=== PATIENT | male | born 1970 | race Hispanic/Latino ===

== ENCOUNTER 2020-03-18 08:57 | Emergency (ER) | payer OTHER ==
--- NOTE | 2020-03-18 09:15 | EDPHYS ---
Physician Documentation [facility] Name: Thomas Garrett Age: 49 yrs Sex: Male : 1970 Arrival Date: 03/18/2020 Time: 09:00 Bed 6 Private MD: ED Physician Jace Mcgrath HPI: 03/18 09:06 This 49 yrs old Male presents to ER via Unassigned with complaints of Facial ps1 Droop, Numbness Of Mouth. 09:06 Patient has symptoms of [address] palsy. Left side of face. Woke up this morning with ps1 symptoms of ptosis, facial droop, and numbness to tongue. No motor deficits and went to the gym this morning without weakness. No other complaints. . Historical: - Allergies: 09:12 No Known Allergies; bp - Home Meds: 09:12 None [Active]; bp - PMHx: 09:12 None; bp - Immunization history:: Adult Immunizations up to date. - Social history:: Smoking status: Patient denies any tobacco usage or history of. ROS: 09:06 Constitutional: Negative for fever, chills, and weight loss. ps1 09:06 Cardiovascular: Negative for chest pain, palpitations, and edema, Respiratory: Negative for shortness of breath, cough, wheezing, and pleuritic chest pain, Abdomen/GI: Negative for abdominal pain, nausea, vomiting, diarrhea, and constipation, MS/Extremity: Negative for injury and deformity. 09:06 Eyes: Positive for ptosis. 09:06 Neuro: Positive for weakness, of the left cheek, left eye and left jaw. Exam: 09:06 Constitutional: This is a well developed, well nourished patient who is awake, alert, ps1 and in no acute distress. Head/Face: Normocephalic, atraumatic. ENT: Nares patent. No nasal discharge, no septal abnormalities noted. Tympanic membranes are normal and external auditory canals are clear. Oropharynx with no redness, swelling, or masses, exudates, or evidence of obstruction, uvula midline. Mucous membranes moist. Neck: Trachea midline, no thyromegaly or masses palpated, and no cervical lymphadenopathy. Supple, full range of motion without nuchal rigidity, or vertebral point tenderness. No Meningismus. Cardiovascular: Regular rate and rhythm. No gallops, murmurs, or rubs. Normal PMI, no JVD. No pulse deficits. Abdomen/GI: Soft, non-tender, with normal bowel sounds. No distension or tympany. No guarding or rebound. No evidence of tenderness throughout. 09:06 Eyes: left ptosis. no conjunctival injection. 09:06 Neuro: Orientation: is normal, Mentation: is normal, Cranial nerves: facial droop noted on left, with forehead involved. Ptosis of left upper eyelid. Vital Signs: 09:11 BP 163 / 97; Pulse 89; Resp 17; Temp 97.5; Pulse Ox 100% ; Weight 98.43 kg; Height 5 bp ft. 6 in. (167.64 cm); 09:11 Body Mass Index 35.02 (98.43 kg, 167.64 cm) bp MDM: 09:10 Data reviewed: vital signs, nurses notes. Counseling: I had a detailed discussion with ps1 the patient and/or guardian regarding: the historical points, exam findings, and any diagnostic results supporting the discharge/admit diagnosis. Counseling: I had a detailed discussion with the patient and/or guardian regarding: Patient does not have signs of CVA. Exam CW [address] palsy. Patient woke up with symptoms. Home with eye patch, natural tears, acyclovir, and Medrol. No signs of focal weakness in extremities. Return precautions if symptoms worsen as documented in the discharged instructions. . 09:14 Patient medically screened. ps1 Administered Medications: No medications were administered Disposition: 03/18/20 09:14 Discharged to Home. Impression: Rendon's Palsy, left. . - Condition is Stable. - Discharge Instructions: Rendon Palsy, Adult. - Prescriptions for Acyclovir 400 mg Oral Tablet - take 1 tablet by ORAL route every 8 hours; 30 tablet. Medrol (Raheel) 4 mg Oral Tablets, Dose Pack - take 1 tablet by ORAL route as directed - follow package instructions; 1 packet. - Medication Reconciliation Form, Thank You Letter, Antibiotic Education, Prescription Opioid Use form. - Follow up: Gisel Dc MD; When: 48 Hours; Reason: Further diagnostic work-up, Recheck today's complaints. Follow up: Emergency Department; When: As needed; Reason: Worsening of condition. - Problem is new. - Symptoms are unchanged. Signatures: Oswald Pablo RN RN bp Jace Mcgrath MD MD ps1 Corrections: (The following items were deleted from the chart) 09:29 09:14 03/18/2020 09:14 Discharged to Home. Impression: Rendon's Palsy, left. . Condition bp is Stable. Forms are Medication Reconciliation Form, Thank You Letter, Antibiotic Education, Prescription Opioid Use. Follow up: Gisel Dc; When: 48 Hours; Reason: Further diagnostic work-up, Recheck today's complaints. Follow up: Emergency Department; When: As needed; Reason: Worsening of condition. Problem is new. Symptoms are unchanged. ps1
--- NOTE | 2020-03-18 09:15 | ER ---
Nurse's Notes [facility] Name: Thomas Garrett Age: 49 yrs Sex: Male : 1970 Arrival Date: 03/18/2020 Time: 09:00 Bed 6 Private MD: Diagnosis: Rendon's Palsy, left. Presentation: 03/18 09:11 Chief complaint: Patient states: LEFT FACIAL PARASTHESIA INVOLVING THE BROW x2 DAYS. bp Coronavirus screen: Proceed with normal triage. Ebola Screen: No symptoms or risks identified at this time. No acute neurological deficit is noted. Initial Sepsis Screen: Does the patient meet any 2 criteria? No. Patient's initial sepsis screen is negative. Does the patient have a suspected source of infection? No. Patient's initial sepsis screen is negative. Risk Assessment: Do you want to hurt yourself or someone else? Patient reports no desire to harm self or others. Onset of symptoms is unknown. 09:11 Method Of Arrival: Ambulatory bp 09:11 Acuity: FRACISCO 4 bp Triage Assessment: 09:12 The onset of the patients symptoms was March 16, 2020 at 08:00. General: Appears in no bp apparent distress. comfortable, Behavior is cooperative, appropriate for age, anxious. Pain: Denies pain. EENT: LEFT EYELID DECREASED MOVEMENT. Neuro: Reports paresthesias LEFT FACE INVOLVING BROW. Cardiovascular: No deficits noted. Respiratory: No deficits noted. GI: No signs and/or symptoms were reported involving the gastrointestinal system. : No signs and/or symptoms were reported regarding the genitourinary system. Derm: No deficits noted. Musculoskeletal: No deficits noted. Historical: - Allergies: 09:12 No Known Allergies; bp - Home Meds: 09:12 None [Active]; bp - PMHx: 09:12 None; bp - Immunization history:: Adult Immunizations up to date. - Social history:: Smoking status: Patient denies any tobacco usage or history of. Screenin:14 Abuse screen: Denies threats or abuse. Denies injuries from another. Nutritional bp screening: No deficits noted. Tuberculosis screening: No symptoms or risk factors identified. Fall Risk None identified. Assessment: 09:14 General: SEE TRIAGE NOTE. bp 09:28 Reassessment: PT D/C HOME AMBULATORY, DX WITH RENDON'S PALSY. bp Vital Signs: 09:11 BP 163 / 97; Pulse 89; Resp 17; Temp 97.5; Pulse Ox 100% ; Weight 98.43 kg; Height 5 bp ft. 6 in. (167.64 cm); 09:11 Body Mass Index 35.02 (98.43 kg, 167.64 cm) bp ED Course: 09:00 Patient arrived in ED. ag5 09:02 Jace Mcgrath MD is Attending Physician. ps1 09:11 Oswald Pablo, RN is Primary Nurse. bp 09:12 Triage completed. bp 09:12 Arm band placed on. bp 09:13 Gisel Dc MD is Referral Physician. ps1 09:14 Patient has correct armband on for positive identification. Bed in low position. Call bp light in reach. Side rails up X2. 09:14 No provider procedures requiring assistance completed. Patient did not have IV access bp during this emergency room visit. Administered Medications: No medications were administered Outcome: 09:14 Discharge ordered by MD. ps1 09:15 Discharged to home ambulatory. bp 09:15 Condition: stable 09:15 Discharge instructions given to patient, Instructed on discharge instructions, follow up and referral plans. medication usage, Demonstrated understanding of instructions, follow-up care, medications, Prescriptions given X 2. 09:29 Patient left the ED. bp Signatures: Oswald Pablo RN RN bp Jace Mcgrath MD MD ps1 MonetVishal ag5
== END 2020-03-18 09:29 | disposition home or self-care (01) ==
LOC: ER 08:57
DX: G51.0 Bell's palsy (principal)
CPT/HCPCS: 99282

== ENCOUNTER 2021-10-06 01:15 | Inpatient (IN) | payer OTHER ==
--- OUTSIDE RECORDS SUMMARY | 2021-10-06 01:17 | XMS REPORT | Continuity of Care Document ---
:1970 Author Organization [facility] t Address [address] [place] [address] Care Team Providers Name Role Phone Jana Montanez MD Primary Care Physician [phone] RENE MONTANEZ Attending Clinician Unavailable Rene Montanez MD Attending Clinician Payers Payer Name Policy Type Policy Number Effective Date Expiration Date Julia DURAN 2 [id number] 2021 00:00:00 Problems Condition Condition Condition Status Onset Resolution Last Treating Co mments Source Name Details Category Date Date Treatment Clinician Date No known No known Disease Kelse y active active Seybold problems problems Allergies, Adverse Reactions, Alerts This patient has no known allergies or adverse reactions. Social History Social Habit Start Date Stop Date Quantity Comments Source History [facility] Khalida kim Alcohol Comment Exposure to Not sure Khalida pickard SARS-CoV-2 (event) History [facility] Khalida kim Alcohol Std Drinks History [facility] Khalida kim Alcohol Binge Alcohol intake 2021-10-05 2021-10-05 Lifetime Khalida kinney 00:00:00 00:00:00 non-drinker (finding) History SDOH 2021-05-20 2021-05-20 1 Khalida kim Alcohol Frequency 00:00:00 00:00:00 [birth year] Khalida Se ybold 00:00:00 00:00:00 Smoking Status Start Date Stop Date Source Never smoked tobacco Khalida Seyb old Medications Ordered Filled Start Stop Current Ordering Indication Dosage Frequency Signature Comments Components Source Medication Medication Date Date Medication? Clinician (SIG) Name Name Amoxicillin Yes [id number] 1{tbl} Take 1 Khalida -Pot 1-24 tablet by Seybold Clavulanate 00:00: mouth 2 875-125 MG 00 times oral Tablet daily methylPREDN Yes [id number] 1{rubio} Take 1 rubio Khalida ISolone 4 1-24 by mouth Seybol d MG oral 00:00: See Admin Tablet 00 Instructio Therapy ns Use as Pack directed Albuterol Yes [id number] 2{puff} Q4H Inhale 2 Khalida HFA 108 (90 1-24 puffs into Se ybold Base) 00:00: the lungs MCG/ACT IN 00 every 4 AERS hours as needed for wheezing Losartan 2020-09 Yes [id number] 25mg Take 1 Atul sey Potassium 0-08 tablet (25 Seyb old 25 MG oral 00:00: mg total) Tablet 00 by mouth daily Losartan 2020-09 Yes [id number] 25mg Take 1 Atul sey Potassium 0-08 tablet (25 Seyb old 25 MG oral 00:00: mg total) Tablet 00 by mouth daily Losartan Yes [id number] 25mg Take 1 Atul sey Potassium 9-08 tablet (25 Seyb old 25 MG oral 00:00: mg total) Tablet 00 by mouth daily Losartan 2020- No [id number] 25mg Take 1 Ke lsey Potassium 9-08 10-08 tablet (25 Sey bold 25 MG oral 00:00: 00:00 mg total) Tablet 00 :00 by mouth daily Vital Signs Vital Name Observation Time Observation Value Comments Source Systolic blood pressure 2021-06-19 14:56:00 144 mm[Hg] Khalida Seybold Diastolic blood 2021-06-19 14:56:00 82 mm[Hg] Kelse y Seybold pressure Heart rate 2021-06-19 14:56:00 83 /min Khalida S eybold Body temperature 2021-06-19 14:56:00 37 Ana Cris ey Seybold Respiratory rate 2021-06-19 14:56:00 16 /min Cris ey Seybold Body height 2021-06-19 14:56:00 167.6 cm Khalida Dumont eybold Body weight 2021-06-19 14:56:00 97.07 kg Khalida Dumont eybold BMI 2021-06-19 14:56:00 34.54 kg/m2 Khalida S eybold Systolic blood pressure 2021-05-20 19:35:00 158 mm[Hg] Khalida Seybold Diastolic blood 2021-05-20 19:35:00 94 mm[Hg] Kelse y Seybold pressure Heart rate 2021-05-20 19:19:00 104 /min Khalida Dumont eybold Body temperature 2021-05-20 19:19:00 36.28 Ana Cris ey Seybold Respiratory rate 2021-05-20 19:19:00 16 /min Cris luis Seybold Body height 2021-05-20 19:19:00 167.6 cm Khalida smithbold Body weight 2021-05-20 19:19:00 94.348 kg Khalida smithbold BMI 2021-05-20 19:19:00 33.57 kg/m2 Khalida smithbold Procedures This patient has no known procedures. Encounters Start End Encounter Admission Attending Care Care Encounter Source Date/Time Date/Time Type Type Clinicians Facility Department ID 2021-10-05 2021-10-05 Telemedici Edgar MONTANEZ [id number] Khalida 13:30:00 13:30:00 ne JANA Chu [id number] Se vicold [id number] 2021-10-05 2021-10-05 Outpatient KHALIDA MONTANEZ [id number] Khalida 00:00:00 00:00:00 JANA pickard 2021-06-19 2021-06-19 Office Edgar Montanez [id number] Khalida 09:53:00 10:23:00 Visit Jana Chu [id number] Se vicold Somogyi [id number] 2021-06-17 2021-06-17 Outpatient KHALIDA MONTANEZ [id number] Khalida 14:00:00 14:00:00 JANA pickard 2021-05-20 2021-05-20 Office Edgar Montanez [id number] Khalida 14:17:06 14:47:06 Visit Jana Chu [id number] alyssa Hicks [id number] Results This patient has no known results.
[2021-10-06] MEDS ORDERED: LEVALBUTEROL 1.25 MG/3 ML NEB ONE (02:14)
[2021-10-06] MEDS ORDERED: METHYLPREDNISOLONE 125 MG INJ ONE (02:14)
[2021-10-06] MEDS ORDERED: ASPIRIN 325 MG TAB ONE (02:14)
[2021-10-06] MEDS ORDERED: NA CHLORIDE 0.9% 1,000 ML ONE (02:14)
[2021-10-06 02:21] LABS: Absolute Lymphocytes (CBC) 0.9 K/uL (0.7-4.9); Hematocrit 44.6 % (39.6-49.0); Lymphocytes % 9.4 % (15.3-44.8); MPV 8.2 fL (7.6-11.3); RBC Red Blood Cell Count 5.19 M/uL (4.33-5.43)
[2021-10-06 02:36] LABS: Albumin 3.2 g/dL (3.4-5.0); Bilirubin Direct 0.3 mg/dL (0-0.2); Bilirubin Total 0.8 mg/dL (0.2-1.0); Ferritin 1957.7 ng/mL (26-388); Potassium 3.3 mmol/L (3.5-5.1); Protein, Total 8.1 g/dL (6.4-8.2); Troponin High Sensitivity 8.7 pg/mL (<58.9)
--- NOTE | 2021-10-06 02:53 | EDPHYS ---
Physician Documentation [facility] Name: Thomas Garrett Age: 51 yrs Sex: Male : 1970 Arrival Date: 10/06/2021 Time: 01:17 Bed 17 Private MD: ED Physician Raj Allison HPI: 10/06 01:59 This 51 yrs old Male presents to ER via Ambulatory with complaints of pm1 Shortness Of Breath, COVID+ (09-24-21). 01:59 The patient has shortness of breath at rest, with light activity. Onset: The pm1 symptoms/episode began/occurred 2 week(s) ago. Duration: The symptoms are continuous, and are steadily getting worse. The patient's shortness of breath is aggravated by exertion, light activity. Associated signs and symptoms: Pertinent positives: fever, cough. Severity of symptoms: in the emergency department the symptoms are worse. The patient has been recently seen by a physician: with similar presenting complaints, and was sent to the [facility] Emergency Department for further evaluation, virtual PCP visit. Historical: - Allergies: 01:24 No Known Allergies; tw5 - PMHx: 01:24 Hypertensive disorder; tw5 - PSHx: 01:24 None; tw - Immunization history:: Flu vaccine is not up to date. - Social history:: Smoking status: Patient denies any tobacco usage or history of. ROS: 01:59 Cardiovascular: Negative for chest pain, palpitations, and edema. pm1 01:59 Abdomen/GI: Negative for abdominal pain, nausea, vomiting, diarrhea, and constipation, Back: Negative for injury and pain, MS/Extremity: Negative for injury and deformity, Skin: Negative for injury, rash, and discoloration. 01:59 Constitutional: Positive for body aches, fever, poor PO intake, weight loss, 13 pounds since diagnosis. 01:59 Respiratory: Positive for cough, shortness of breath. 01:59 Neuro: Positive for dizziness, generalized weakness, Negative for numbness, tingling. 01:59 All other systems are negative. Exam: 01:59 Constitutional: This is a well developed, well nourished patient who is awake, alert, pm1 and in no acute distress. Head/Face: Normocephalic, atraumatic. 01:59 Back: No spinal tenderness. No costovertebral tenderness. Full range of motion. Skin: Warm, dry with normal turgor. Normal color with no rashes, no lesions, and no evidence of cellulitis. MS/ Extremity: Pulses equal, no cyanosis. Neurovascular intact. Full, normal range of motion. 01:59 Cardiovascular: Rate: tachycardic, Rhythm: regular, Pulses: no pulse deficits are appreciated, Heart sounds: normal, normal S1and S2, Edema: is not appreciated. 01:59 Respiratory: mild respiratory distress is noted, Respirations: tachypnea, Breath sounds: bronchial sounds, are heard diffusely. 01:59 Abdomen/GI: Exam negative for acute changes, Inspection: abdomen appears normal, Palpation: abdomen is soft and non-tender, in all quadrants. 01:59 Neuro: Exam negative for acute changes, Orientation: is normal, Mentation: is normal, Motor: is normal, moves all fours. Vital Signs: 01:22 BP 142 / 90; Pulse 124; Resp 22; Temp 100.7(O); Pulse Ox 92% on R/A; Weight 91.17 kg; tw5 Height 5 ft. 6 in. (167.64 cm); Pain 7/10; 01:30 BP 140 / 88; Pulse 114; Resp 20; Pulse Ox 87% on R/A; as6 02:30 BP 102 / 79; Pulse 112; Resp 31 S; Pulse Ox 97% on 3 lpm NC; as6 03:27 BP 124 / 78; Pulse 122; Resp 25 S; Temp 99.0(TE); Pulse Ox 96% on 3 lpm NC; as6 01:22 Body Mass Index 32.44 (91.17 kg, 167.64 cm) tw5 MDM: 01:31 Patient medically screened. pm1 01:33 Data reviewed: vital signs. Data interpreted: Pulse oximetry: on room air is 87 %. pm1 Interpretation: hypoxia. Plan: O2 by NC applied. 02:51 Counseling: I had a detailed discussion with the patient and/or guardian regarding: the pm1 historical points, exam findings, and any diagnostic results supporting the discharge/admit diagnosis, lab results, radiology results, the need for further work-up and treatment in the hospital. 02:54 Physician consultation: Brenden ANDREWS regarding admission, patient's condition, and pm1 will see patient in ED, shortly. 10/06 01:32 Order name: BMP pm1 10/06 01:32 Order name: Blood Culture Adult (2) pm1 10/06 01:32 Order name: C-Reactive Protein pm1 10/06 01:32 Order name: CBC with Diff pm10/06 01:32 Order name: D-Dimer pm1 10/06 01:32 Order name: Ferritin pm1 10/06 01:32 Order name: Flu pm10/06 01:32 Order name: LFT's pm10/06 01:32 Order name: Lactate; Complete Time: 02:39 pm10/06 01:32 Order name: Lipase pm1 10/06 01:32 Order name: PT-INR pm10/06 01:32 Order name: Procalcitonin pm10/06 01:32 Order name: Ptt, Activated pm10/06 01:32 Order name: Strep pm10/06 01:32 Order name: Troponin HS pm10/06 01:32 Order name: CXR XRAY pm10/06 01:32 Order name: EKG; Complete Time: 01:33 pm10/06 01:33 Order name: Basic Metabolic Panel EDWY 10/06 01:33 Order name: Blood Culture EDWY 10/06 01:33 Order name: C-Reactive Protein EDWY 10/06 01:33 Order name: CBC with Automated Diff; Complete Time: 02:39 EDWY 10/06 01:33 Order name: D-Dimer ED[facility] 10/06 01:33 Order name: Ferritin ED[facility] 10/06 02:08 Order name: COVID-19/FLU A+B EDWY 10/06 04:10 Order name: Urine Dipstick-Ancillary EDWY 10/06 01:32 Order name: Cardiac monitoring; Complete Time: 01:39 pm10/06 01:32 Order name: Droplet/Contact Precautions; Complete Time: 01:39 pm10/06 01:32 Order name: EKG - Nurse/Tech; Complete Time: 02:34 pm10/06 01:32 Order name: IV Start; Complete Time: 01:51 pm10/06 01:32 Order name: Labs collected and sent; Complete Time: 02:08 pm10/06 01:32 Order name: O2 Per Protocol; Complete Time: 01:39 pm1 10/06 01:32 Order name: O2 Sat Monitoring; Complete Time: 01:39 pm1 10/06 01:32 Order name: Urine Dipstick-Ancillary (obtain specimen); Complete Time: 04:09 pm1 10/06 03:12 Order name: CONS Physician Consult EDMS Administered Medications: 02:34 Drug: SOLU-Medrol (methylPrednisoLONE) 125 mg Route: IVP; Site: left antecubital; as6 02:52 Follow up: Response: No adverse reaction as6 02:34 Drug: Xopenex (levalbuterol) 2.5 mg Route: Inhalation; as6 02:52 Follow up: Response: No adverse reaction as6 02:34 Drug: NS 0.9% 1000 ml Route: IV; Rate: 1000 ml; Site: left antecubital; as6 03:28 Follow up: Response: No adverse reaction; IV Status: Completed infusion; IV Intake: as6 1000ml 02:34 Drug: Aspirin 325 mg Route: PO; as6 02:52 Follow up: Response: No adverse reaction as6 Disposition: 08:51 Co-signature as Attending Physician, Raj Allison MD I agree with the assessment and jono plan of care. Disposition Summary: 10/06/21 02:52 Hospitalization Ordered Hospitalization Status: Inpatient Admission pm1 Provider: Brenden Hope pm1 Location: Telemetry/MedSurg (Inpatient) pm1 Condition: Stable pm1 Problem: new pm1 Symptoms: have improved pm1 Bed/Room Type: Standard pm1 Room Assignment: 429(10/06/21 03:25) cg Diagnosis - Pneumonia due to SARS-associated coronavirus pm1 Forms: - Medication Reconciliation Form pm1 - SBAR form pm1 Signatures: Dispatcher [employer] Raj Theodore MD MD cha Garcia, Cindy, RN RN cg Sudhir Bermudez, [employer] pm1 Sherice Zamorano tw5 Black Mendoza RN RN as6 Corrections: (The following items were deleted from the chart) 02:07 01:59 SARS-COV-2 RT PCR+[id number].LAB.BRZ ordered. EDWY EDMS 03:25 02:52 pm1 cg
--- NOTE | 2021-10-06 02:53 | ER ---
Nurse's Notes [facility] Name: Thomas Garrett Age: 51 yrs Sex: Male : 1970 Arrival Date: 10/06/2021 Time: :17 Bed 17 Private MD: Diagnosis: Pneumonia due to SARS-associated coronavirus Presentation: 10/06 01:22 Chief complaint: Patient states: "I tested positive for covid on the . I cannot tw5 shake it off. When I cough I have to take really small deep breaths to catch up. I did the virtual doc today and she said that I needed to come to the ER". Coronavirus screen: Vaccine status: Patient reports being unvaccinated. Ebola Screen: Patient negative for fever greater than or equal to 101.5 degrees Fahrenheit, and additional compatible Ebola Virus Disease symptoms Patient denies exposure to infectious person. Patient denies travel to an Ebola-affected area in the 21 days before illness onset. Initial Sepsis Screen: Does the patient meet any 2 criteria? RR > 20 per min. HR > 90 bpm. Does the patient have a suspected source of infection?. Risk Assessment: Do you want to hurt yourself or someone else? Patient reports no desire to harm self or others. Onset of symptoms was September 24, 2021. 01:22 Method Of Arrival: Ambulatory tw5 01:22 Acuity: FRACISCO 3 tw5 Triage Assessment: 01:24 General: Appears uncomfortable, ill, Behavior is calm, cooperative, appropriate for tw5 age. Pain: Complains of pain in chest Pain currently is 7 out of 10 on a pain scale. Respiratory: Reports shortness of breath at rest Onset: The symptoms/episode began/occurred gradually, the patient has moderate shortness of breath. Historical: - Allergies: 01:24 No Known Allergies; tw5 - PMHx: 01:24 Hypertensive disorder; tw5 - PSHx: :24 None; tw5 - Immunization history:: Flu vaccine is not up to date. - Social history:: Smoking status: Patient denies any tobacco usage or history of. Screenin:44 Abuse screen: Denies threats or abuse. Denies injuries from another. Nutritional as6 screening: No deficits noted. Tuberculosis screening: No symptoms or risk factors identified. Fall Risk None identified. Assessment: 01:45 General: Appears ill, Behavior is calm, cooperative. Pain: Complains of pain in chest. as6 Neuro: Level of Consciousness is awake, alert, obeys commands, Oriented to person, place, time, situation. Cardiovascular: Capillary refill < 3 seconds Patient's skin is warm and dry. Rhythm is sinus tachycardia. Respiratory: Airway is patent Trachea midline Respiratory effort is labored, Respiratory pattern is regular, symmetrical, tachypnea Breath sounds are diminished bilaterally. Derm: Skin is intact, is healthy with good turgor. 03:30 General: attempted to call report . as6 Vital Signs: 01:22 BP 142 / 90; Pulse 124; Resp 22; Temp 100.7(O); Pulse Ox 92% on R/A; Weight 91.17 kg; tw5 Height 5 ft. 6 in. (167.64 cm); Pain 7/10; 01:30 BP 140 / 88; Pulse 114; Resp 20; Pulse Ox 87% on R/A; as6 02:30 BP 102 / 79; Pulse 112; Resp 31 S; Pulse Ox 97% on 3 lpm NC; as6 03:27 BP 124 / 78; Pulse 122; Resp 25 S; Temp 99.0(TE); Pulse Ox 96% on 3 lpm NC; as6 01:22 Body Mass Index 32.44 (91.17 kg, 167.64 cm) tw5 ED Course: 01:17 Patient arrived in ED. wm 01:24 Triage completed. tw5 01:24 Arm band placed on left wrist. tw5 01:27 Black Mendoza, LUKASZ is Primary Nurse. as6 01:31 Sudhir Bermudez NP is PHCP. pm1 01:31 Raj Allison MD is Attending Physician. pm1 01:45 CXR XRAY In Process Unspecified. EDMS 02:00 Inserted saline lock: 18 gauge in left antecubital area, using aseptic technique. Blood as6 collected. 02:08 COVID-19/FLU A+B Sent. as6 02:08 Ferritin Sent. as6 02:08 Blood Culture Sent. as6 02:08 C-Reactive Protein Sent. as6 02:08 D-Dimer Sent. as6 02:08 CBC with Automated Diff Sent. as6 02:08 Basic Metabolic Panel Sent. as6 02:08 BMP Sent. as6 02:08 Blood Culture Adult (2) Sent. 6 02:08 C-Reactive Protein Sent. as6 02:08 CBC with Diff Sent. 02:08 D-Dimer Sent. as6 02:08 Ferritin Sent. as6 02:08 Flu Sent. 02:08 LFT's Sent. 02:08 Lactate Sent. as6 02:08 Lipase Sent. 6 02:08 PT-INR Sent. 02:08 Procalcitonin Sent. 02:08 Ptt, Activated Sent. 02:08 Strep Sent. 02:08 Troponin HS Sent. 02:44 Placed in gown. Bed in low position. Call light in reach. Side rails up X2. Cardiac as6 monitor on. Pulse ox on. NIBP on. Warm blanket given. PO fluids given. 02:52 Brenden Hope PA is Hospitalizing Provider. pm1 03:28 No provider procedures requiring assistance completed. Patient admitted, IV remains in as6 place. Administered Medications: :34 Drug: SOLU-Medrol (methylPrednisoLONE) 125 mg Route: IVP; Site: left antecubital; as6 02:52 Follow up: Response: No adverse reaction as6 02:34 Drug: Xopenex (levalbuterol) 2.5 mg Route: Inhalation; 02:52 Follow up: Response: No adverse reaction 02:34 Drug: NS 0.9% 1000 ml Route: IV; Rate: 1000 ml; Site: left antecubital; as6 03:28 Follow up: Response: No adverse reaction; IV Status: Completed infusion; IV Intake: as6 1000ml 02:34 Drug: Aspirin 325 mg Route: PO; 02:52 Follow up: Response: No adverse reaction as6 Intake: 03:28 IV: 1000ml; Total: 1000ml. as6 Outcome: 02:52 Decision to Hospitalize by Provider. pm1 04:23 Admitted to Tele accompanied by nurse, via wheelchair, room 429, with oxygen, with as6 chart, Report called to Latesha LAL 04:23 Condition: stable 04:23 Patient left the ED. as6 Signatures: Dispatcher [employer] EDMS Sudhir Bermudez NP MUSIC WRITER pm1 Doreen Bowden Tiffany tw5 Slawson, Black, RN RN as6
[2021-10-06 02:56] LABS: Protime INR 1.12
[2021-10-06 03:03] LABS: SARS-COV-2 RT PCR POSITIVE (NEGATIVE)
--- NOTE | 2021-10-06 03:43 | P.HP ---
Certification for Inpatient Patient admitted to: Inpatient With expected LOS: >2 Midnights Patient will require the following post-hospital care: None Practitioner: I am a practitioner with admitting privileges, knowledge of patient current condition, hospital course, and medical plan of care. Services: Services provided to patient in accordance with Admission requirements found in Title 42 Section 412.3 of the Code of Federal Regulations <Brenden Hope - Last Filed: 10/06/21 03:39> Patient History Date of Service: 10/06/21 Reason for admission: covid pneumonia History of Present Illness: Mr. Garrett is a 51 yo M with hypertension who tested positive for COVID on 09/24/21 after being exposed by a coworker. He reports increasing SOB and NERI, worse with coughing. He also reports fever, fatigue, decreased appetite and fluid intake. At presentation, he was hypoxic to 87%, improved to 97% on 3L NC. He is not vaccinated. K 3.3 BUN 22 Cr 1.47 GFR 51 Ferritin 1957 Dbili 0.3 AST 97 ALT 201 procal 0.19 - Past Medical/Surgical History -: HTN Past Surgical History: Patient denies surgical history - Family History Family History: Reviewed- Non-Contributory - Social History Smoking Status: Never smoker Alcohol use: No CD- Drugs: No Caffeine use: Yes Place of Residence: Home <Brenden Hope - Last Filed: 10/06/21 03:39> Date of Service: 10/06/21 <Mariza Tai - Last Filed: 10/12/21 03:32> Allergies No Known Allergies Allergy (Verified 10/06/21 04:21) Home Medications: Losartan Potassium 25 mg PO DAILY 10/06/21 Albuterol Inhaler [Ventolin Inhaler*] 2 puff IH Q6H PRN #1 hfa.aer.ad 10/08/21 Benzonatate [Tessalon Perle*] 100 mg PO TID PRN #30 cap 10/08/21 Zinc Sulfate [Zinc Sulfate*] 220 mg PO DAILY #30 cap 10/08/21 predniSONE [Prednisone*] 20 mg PO BID #20 tab 10/08/21 Review of Systems 10-point ROS is otherwise unremarkable General: Fever, Malaise Eyes: Unremarkable ENT: Unremarkable Respiratory: Cough, Shortness of Breath, SOB with Excertion Cardiovascular: Unremarkable Gastrointestinal: Unremarkable Genitourinary: Unremarkable Musculoskeletal: Unremarkable Integumentary: Unremarkable Neurological: Unremarkable Lymphatics: Unremarkable <Brenden Hope - Last Filed: 10/06/21 03:39> Physical Examination - Physical Exam General: Alert, In no apparent distress HEENT: Atraumatic, PERRLA, Mucous membr. moist/pink, EOMI, Sclerae nonicteric Neck: Supple, 2+ carotid pulse no bruit, No LAD, Without JVD or thyroid abnormality Respiratory: Normal air movement, Rhonchi/gurgles, Other (labored breathing) Cardiovascular: Regular rate/rhythm, Normal S1 S2 Gastrointestinal: Normal bowel sounds, No tenderness Musculoskeletal: No tenderness Integumentary: No rashes Neurological: Normal speech, Normal strength at 5/5 x4 extr, Normal tone, Normal affect Lymphatics: No axilla or inguinal lymphadenopathy - Studies Laboratory Data (last 24 hrs) 10/06/21 01:54: PT 12.9 H, INR 1.12, APTT 33.2 10/06/21 01:54: WBC 9.20, Hgb 15.2, Hct 44.6, Plt Count 201 10/06/21 01:54: Sodium 137, Potassium 3.3 L, BUN 22 H, Creatinine 1.47 H, Glucose 135 H, Total Bilirubin 0.8, AST 97 H, ALT 201 H, Alkaline Phosphatase 79, Lipase 294 <Brenden Hope - Last Filed: 10/06/21 03:39> - Studies Microbiology Data (last 24 hrs): 10/06/21 02:10 Blood - Blood Aerobic Blood Culture - Final No growth in 5 days. 10/06/21 02:10 Blood - Blood Anaerobic Blood Culture - Final No growth in 5 days. 10/06/21 01:54 Blood - Blood Aerobic Blood Culture - Final No growth in 5 days. 10/06/21 01:54 Blood - Blood Anaerobic Blood Culture - Final No growth in 5 days. <Mariza Tai - Last Filed: 10/12/21 03:32> Assessment and Plan - Problems (Diagnosis) (1) Pneumonia due to COVID-19 virus Status: Acute (2) Hypertension Status: Chronic Qualifiers: Hypertension type: primary hypertension Qualified Code(s): I10 - Essential (primary) hypertension - Plan pulm consulted, RT consulted continue IV steroids, covid supplements, O2 as needed daily CRP, ferritin, procalcitonin gentle IV fluid hydration, monitor kidney function hydralazine PRN for BP spikes potassium replacement A1c pending reconcile and continue home medications DVT ppx Discharge Plan: Home Plan to discharge in: Greater than 2 days - Advance Directives Does patient have a Living Will: No Does patient have a Durable POA for Healthcare: No - Code Status/Comfort Care Code Status Assessed: Yes (full code ) Critical Care: No Time Spent Managing Pts Care (In Minutes): 70 <Brenden Hope - Last Filed: 10/06/21 03:39> Date of Service: 10/06/21 Subjective: Agree with the HPI as mentioned above Physical Examination: Vitals: Afebrile vital signs are stable Physical exam: Cardiovascular: Within normal limits. Lungs: Within normal limits Abdomen: Within normal limits Neuro: Awake, alert, oriented to person place and time Assessment: 1. COVID-19 pneumonia Plan: 1. Continue with current plan of care as mentioned above <Mariza Tai - Last Filed: 10/12/21 03:32>
[2021-10-06 04:10] LABS: Urine Blood Negative (Negative); Urine Glucose Negative (Negative); Urine Protein 2+ (Negative); Urine pH 5.5 (5.0-7.0)
[2021-10-06] MEDS ORDERED: D50W 25 GM/50 ML SYRINGE IV PRN (04:47)
[2021-10-06] MEDS ORDERED: ACETAMINOPHEN 500 MG TAB PO PRN (04:47)
[2021-10-06] MEDS ORDERED: ONDANSETRON 4 MG/2 ML VIAL IV PRN (04:47)
[2021-10-06] MEDS ORDERED: BENZONATATE 100 MG CAP PO PRN (04:47)
[2021-10-06] MEDS ORDERED: MORPHINE 2 MG/ML SYR IV PRN (04:47)
[2021-10-06] MEDS ORDERED: NA CHLORIDE 0.9% 1,000 ML IV SCH (04:47)
[2021-10-06] MEDS ORDERED: MELATONIN 5 MG TABLET PO PRN (04:47)
[2021-10-06] MEDS ORDERED: HYDRALAZINE HCL 20 MG/ML VIAL IV PRN (04:47)
[2021-10-06] MEDS ORDERED: GLUCAGON 1 MG/VIAL IM PRN (04:47)
[2021-10-06 05:04] VITALS: BMI 32.6
[2021-10-06] MEDS ORDERED: INSULIN -REGULAR HUMAN 50 UNIT/0.5 ML ML SQ SCH (07:30)
[2021-10-06] MEDS: METHYLPREDNISOLONE 125 MG INJ IV SCH ×2 (07:43→20:30)
[2021-10-06] MEDS: ZINC SULFATE 220 MG CAP PO SCH (07:43)
[2021-10-06] MEDS: ENOXAPARIN 40 MG/0.4 ML SQ SCH (07:44)
[2021-10-06] MEDS: ASPIRIN EC 81 MG TAB PO SCH (07:44)
[2021-10-06] MEDS: FAMOTIDINE 20 MG TAB PO SCH ×2 (07:44→20:30)
[2021-10-06] MEDS: ASCORBIC ACID 500 MG TABLET PO SCH ×4 (07:44→20:29)
[2021-10-06] MEDS: THIAMINE HCL 100 MG TABLET PO SCH (07:44)
[2021-10-06] MEDS: VITAMIN D 1000 UNIT TAB PO SCH (07:44)
--- NOTE | 2021-10-06 08:22 | EKG ---
Test Date: 2021-10-06 Test Time: 02:33:35 Extrusion Machine Operator: MEASUREMENT RESULTS: Intervals: Rate: 107 WI: 130 QRSD: 88 QT: 334 QTc: 445 [place]: P: 45 WI: 130 QRS: 86 T: 2 INTERPRETIVE STATEMENTS: Sinus tachycardia Otherwise normal ECG No previous ECG available for comparison Electronically Signed On 10-06-21 08:22:15 SILVER STEWARD by Yousif Camarillo
--- NOTE | 2021-10-06 08:30 | RAD REPORT ---
EXAM DESCRIPTION: RAD - Chest Single View - 10/06/2021 1:45 am CLINICAL HISTORY: SOB COMPARISON: None TECHNIQUE: AP portable chest image was obtained 10/06/2021 1:45 am . FINDINGS: Exam is very limited by lordotic positioning, very low lung volumes and under penetrated f ilm technique. No dense mass or consolidation. Interstitial pattern is prominent throughout both lung kirk likely artifact of the combined exam limitations. A mild to moderate interstitial edema or infiltrate could be masked in this setting. Heart size and vasculature are accentuated by the same exam limitations. No measurable pleural effus ion and no pneumothorax. No acute bony abnormality seen. No acute aortic findings suspected. IMPRESSION: Significantly limited portable chest examination. No focal mass or consolidations seen. A mild to moderate interstitial edema or infiltrate could be masked by the exam limitations.
--- NOTE | 2021-10-06 08:36 | P.CNS ---
Date of Consult: 10/06/21 Reason for Consult: Coronavirus pneumonia Chief Complaint: covid pneumonia History of Present Illness: Patient is 51 years of age admitted with worsening shortness of breath was diagnosed with coronavirus pneumonia he has been sick for about 2 weeks has not been vaccinated is doing better Patient was diagnosed positive on September 24 exposed by a coworker has been complaining of shortness of breath on exertion fever fatigue is doing much better Allergies No Known Allergies Allergy (Verified 10/06/21 04:21) Home Medications: Losartan Potassium 25 mg PO DAILY 10/06/21 - Past Medical/Surgical History Diabetic: No -: HTN - Social History Alcohol use: No CD- Drugs: No Caffeine use: Yes Place of Residence: Home Review of Systems General: Weakness Respiratory: Cough, Shortness of Breath Physical Examination Temp Pulse Resp BP Pulse Ox 97.1 F 93 H 32 H 113/62 96 10/06/21 08:00 10/06/21 08:00 10/06/21 08:00 10/06/21 08:00 10/06/21 08:00 General: Alert, Oriented x3, Cooperative Respiratory: Clear to auscultation bilaterally, Diminished Laboratory Data (last 24 hrs) 10/06/21 01:54: PT 12.9 H, INR 1.12, APTT 33.2 10/06/21 01:54: WBC 9.20, Hgb 15.2, Hct 44.6, Plt Count 201 10/06/21 01:54: Sodium 137, Potassium 3.3 L, BUN 22 H, Creatinine 1.47 H, Glucose 135 H, Total Bilirubin 0.8, AST 97 H, ALT 201 H, Alkaline Phosphatase 79, Lipase 294 - Problems (1) Pneumonia due to COVID-19 virus Current Visit: Yes Status: Acute Plan: Patient is age 51 admitted with coronavirus pneumonia doing better labs reviewed renal function is slightly worse continue with IV fluid steroid no change in present medication possible discharge tomorrow patient has some fever on admission has not been vaccinated
[2021-10-06] MEDS ORDERED: POTASSIUM CL SA 10 MEQ TAB PO ONE ×2 (09:00→16:28)
[2021-10-06 14:11] LABS: C-Reactive Protein 115.4
[2021-10-07 06:24] LABS: Absolute Lymphocytes (CBC) 0.7 K/uL (0.7-4.9); Hematocrit 40.3 % (39.6-49.0); Lymphocytes % 5.2 % (15.3-44.8); MPV 8.6 fL (7.6-11.3); RBC Red Blood Cell Count 4.68 M/uL (4.33-5.43)
[2021-10-07 07:11] LABS: Albumin 2.6 g/dL (3.4-5.0); Bilirubin Total 0.5 mg/dL (0.2-1.0); Phosphorus 2.5 mg/dL (2.5-4.9); Potassium 3.9 mmol/L (3.5-5.1); Protein, Total 7.2 g/dL (6.4-8.2)
[2021-10-07 07:12] LABS: Magnesium 2.3 mg/dL (1.8-2.4); Thyroid Stimulating Hormone 0.795 uIU/mL (0.360-3.740)
[2021-10-07] MEDS: ASPIRIN EC 81 MG TAB PO SCH (09:11)
[2021-10-07] MEDS: FAMOTIDINE 20 MG TAB PO SCH ×2 (09:12→21:00)
[2021-10-07] MEDS: ENOXAPARIN 40 MG/0.4 ML SQ SCH (09:12)
[2021-10-07] MEDS: METHYLPREDNISOLONE 125 MG INJ IV SCH ×2 (09:13→21:00)
[2021-10-07] MEDS: THIAMINE HCL 100 MG TABLET PO SCH (09:13)
[2021-10-07] MEDS: ASCORBIC ACID 500 MG TABLET PO SCH ×4 (09:14→21:00)
[2021-10-07] MEDS: VITAMIN D 1000 UNIT TAB PO SCH (09:14)
[2021-10-07] MEDS: ZINC SULFATE 220 MG CAP PO SCH (09:15)
[2021-10-07 10:41] LABS: Blood Morphology Comment NOT SEEN (NOT SEEN); Platelet Estimate ADEQ; White Blood Cell Scan OK (OK)
--- NOTE | 2021-10-07 12:17 | P.PN ---
Subjective Date of Service: 10/07/21 Chief Complaint: covid pneumonia Subjective: Improving (Patient is doing well improving requiring oxygen set up for home O2) Review of Systems General: Weakness Respiratory: Shortness of Breath Physical Examination - Vital Signs Temperature: 97.3 F Blood Pressure: 117/66 Pulse: 81 Respirations: 28 Pulse Ox (%): 91 - Physical Exam General: Alert, Oriented x3, Oriented x2, Cooperative - Studies Microbiology Data (last 24 hrs): 10/06/21 01:54 Throat Culture & Sensitivity - Final NORMAL UPPER RESPIRATORY ANSHU GROWN. Assessment & Plan - Problems (Diagnosis) (1) Pneumonia due to COVID-19 virus Current Visit: Yes Status: Acute Plan: Doing well still hypoxic plan to discharge on home O2 discharge home on prednisone and aspirin Discharge Plan: Home
[2021-10-08 07:11] LABS: Absolute Lymphocytes (CBC) 0.7 K/uL (0.7-4.9); Hematocrit 39.9 % (39.6-49.0); Lymphocytes % 4.8 % (15.3-44.8); MPV 8.6 fL (7.6-11.3); RBC Red Blood Cell Count 4.59 M/uL (4.33-5.43)
[2021-10-08 07:51] LABS: Ferritin 1195.5 ng/mL (26-388); Potassium 3.8 mmol/L (3.5-5.1)
[2021-10-08] MEDS: ENOXAPARIN 40 MG/0.4 ML SQ SCH (09:03)
[2021-10-08] MEDS: METHYLPREDNISOLONE 125 MG INJ IV SCH (09:04)
[2021-10-08] MEDS: ASPIRIN EC 81 MG TAB PO SCH (09:04)
[2021-10-08] MEDS: FAMOTIDINE 20 MG TAB PO SCH (09:04)
[2021-10-08] MEDS: ASCORBIC ACID 500 MG TABLET PO SCH ×3 (09:05→17:05)
[2021-10-08] MEDS: THIAMINE HCL 100 MG TABLET PO SCH (09:05)
[2021-10-08] MEDS: VITAMIN D 1000 UNIT TAB PO SCH (09:05)
[2021-10-08] MEDS: ZINC SULFATE 220 MG CAP PO SCH (09:05)
[2021-10-08 09:13] VITALS: O2SAT 93
[2021-10-08 12:00] LABS: C-Reactive Protein 80.1
[2021-10-08 17:42] VITALS: BP 138/77; TEMP 98
[2021-10-10 14:30] LABS: C-Reactive Protein 30.52
--- NOTE | 2021-10-12 03:33 | P.PN ---
Subjective Date of Service: 10/07/21 Patient is clinically feeling better. Oxygenation is improving. Review of Systems 10-point ROS is otherwise unremarkable Physical Examination - Vital Signs Temperature: 98.0 F Blood Pressure: 138/77 Pulse: 65 Respirations: 30 Pulse Ox (%): 93 - Physical Exam General: Alert, In no apparent distress, Oriented x3 HEENT: Atraumatic, PERRLA, EOMI Neck: Supple, JVD not distended Respiratory: Clear to auscultation bilaterally, Normal air movement Cardiovascular: Regular rate/rhythm, Normal S1 S2 Gastrointestinal: Normal bowel sounds, No tenderness Musculoskeletal: No tenderness Integumentary: No rashes Neurological: Normal speech, Normal tone, Normal affect Lymphatics: No axilla or inguinal lymphadenopathy - Studies Microbiology Data (last 24 hrs): 10/06/21 02:10 Blood - Blood Aerobic Blood Culture - Final No growth in 5 days. 10/06/21 02:10 Blood - Blood Anaerobic Blood Culture - Final No growth in 5 days. 10/06/21 01:54 Blood - Blood Aerobic Blood Culture - Final No growth in 5 days. 10/06/21 01:54 Blood - Blood Anaerobic Blood Culture - Final No growth in 5 days. Medications List Reviewed: Yes Assessment & Plan - Problems (Diagnosis) (1) Hypertension Status: Chronic Qualifiers: Hypertension type: primary hypertension Qualified Code(s): I10 - Essential (primary) hypertension (2) Pneumonia due to COVID-19 virus Status: Acute - Plan 1. Continue with IV steroids 2. Monitor inflammatory markers 3. Repeat chest x-ray is symptoms are progressively worsening 4. O2 per protocol 5. Pulmonary consultation 6. Continue with albuterol inhaler therapy; also supportive care 7. Monitor LFTs 8. GI and DVT prophylaxis Discharge Plan: Home Plan to discharge in: Greater than 2 days - Advance Directives Does patient have a Living Will: No Does patient have a Durable POA for Healthcare: No - Code Status/Comfort Care Code Status Assessed: Yes Code Status: Full Code Critical Care: No Time Spent Managing PTS Care (In Minutes): 35
--- NOTE | 2021-10-12 03:34 | P.DS ---
Discharge Date: 10/08/21 Disposition: DC HOME/HOME HEALTH CARE Reason for Admission: covid pneumonia - Problems (1) Hypertension Status: Chronic Qualifiers: Hypertension type: primary hypertension Qualified Code(s): I10 - Essential (primary) hypertension (2) Pneumonia due to COVID-19 virus Status: Acute Brief History of Present Illness: Mr. Garrett is a 51 yo M with hypertension who tested positive for COVID on 09/24/21 after being exposed by a coworker. He reports increasing SOB and NERI, worse with coughing. He also reports fever, fatigue, decreased appetite and fluid intake. At presentation, he was hypoxic to 87%, improved to 97% on 3L NC. He is not vaccinated. K 3.3 BUN 22 Cr 1.47 GFR 51 Ferritin 1957 Dbili 0.3 AST 97 ALT 201 procal 0.19 Hospital Course: Patient has done well during hospitalization. Patient is only on 3 L of oxygen. Patient is doing well and is stable for discharge home. Vital Signs/Physical Exam: Temp Pulse Resp BP Pulse Ox 98.0 F 65 30 H 138/77 93 10/12/21 03:33 10/12/21 03:33 10/12/21 03:33 10/12/21 03:33 10/12/21 03:33 General: Alert, In no apparent distress, Oriented x3 Laboratory Data at Discharge: WBC 14.60 K/uL (4.3-10.9) H 10/08/21 06:49 Hgb 13.2 g/dL (13.6-17.9) L 10/08/21 06:49 Hct 39.9 % (39.6-49.0) 10/08/21 06:49 Plt Count 239 K/uL (152-406) 10/08/21 06:49 PT 12.9 SECONDS (9.5-12.5) H 10/06/21 01:54 INR 1.12 10/06/21 01:54 APTT 33.2 SECONDS (24.3-36.9) 10/06/21 01:54 Sodium 142 mmol/L (136-145) 10/08/21 06:49 Potassium 3.8 mmol/L (3.5-5.1) 10/08/21 06:49 BUN 26 mg/dL (7-18) H 10/08/21 06:49 Creatinine 1.16 mg/dL (0.55-1.3) 10/08/21 06:49 Glucose 174 mg/dL (74-106) H 10/08/21 06:49 Phosphorus 2.5 mg/dL (2.5-4.9) 10/07/21 05:35 Magnesium Cancelled 10/07/21 06:00 Total Bilirubin 0.5 mg/dL (0.2-1.0) 10/07/21 05:35 AST 38 U/L (15-37) H 10/07/21 05:35 ALT 128 U/L (12-78) H 10/07/21 05:35 Alkaline Phosphatase 76 U/L (45-117) 10/07/21 05:35 Triglycerides 117 mg/dL (<150) 10/07/21 05:35 Cholesterol 139 mg/dL (<200) 10/07/21 05:35 HDL Cholesterol 31 mg/dL (40-60) L 10/07/21 05:35 Cholesterol/HDL Ratio 4.48 10/07/21 05:35 Lipase 294 U/L (73-393) 10/06/21 01:54 Home Medications: Losartan Potassium 25 mg PO DAILY 10/06/21 Albuterol Inhaler [Ventolin Inhaler*] 2 puff IH Q6H PRN #1 hfa.aer.ad 10/08/21 Benzonatate [Tessalon Perle*] 100 mg PO TID PRN #30 cap 10/08/21 Zinc Sulfate [Zinc Sulfate*] 220 mg PO DAILY #30 cap 10/08/21 predniSONE [Prednisone*] 20 mg PO BID #20 tab 10/08/21 New Medications: predniSONE [Prednisone*] 20 mg PO BID #20 tab Benzonatate [Tessalon Perle*] 100 mg PO TID PRN #30 cap PRN Reason: Cough Albuterol Inhaler [Ventolin Inhaler*] 2 puff IH Q6H PRN #1 hfa.aer.ad PRN Reason: Shortness Of Breath Zinc Sulfate [Zinc Sulfate*] 220 mg PO DAILY #30 cap Physician Discharge Instructions: -DC IV and DC home -Follow-up with PCP & pulmonary in 1 to 2 weeks -Please call Dr. Tai at [phone] if any questions regarding hospital stay -Please call nursing station at [phone] if any nursing or medication questions -Return to the emergency room if symptoms worsen Diet: AHA Activity: Fall precautions Followup: Marko Crane MD [ACTIVE - CAN ADMIT] - 1-2 Weeks (Call for appointment.) NONE,NONE [Primary Care Provider] - 1-2 Weeks (Call for appointment.) Time spent managing pt's care (in minutes): 35
== END 2021-10-08 18:00 | disposition home health service (06) | DRG 177 ==
LOC: ER 01:15 → ERHOLD 03:17 → 4TH 03:33
PROVIDERS: ADMIT Hospitalist; ATTEND Hospitalist
DX: U07.1 COVID-19 (principal); J12.82 Pneumonia due to coronavirus disease 2019; R09.02 Hypoxemia; I10 Essential (primary) hypertension
CPT/HCPCS: 0240U; 36415; 71045; 80048; 80053; 80061; 80076; 81003; 82728; 83036; 83605; 83690; 83735; 84100; 84132; 84145; 84439; 84443; 84484; 85025; 85379; 85610; 85730; 86140; 87040; 87070; 87081; 93005; 94760; 96361; 96374; 99285; J1650; J2930; J7030